=== PATIENT | female | born 1995 | race Caucasian/White ===

== ENCOUNTER 2019-04-20 14:38 | Emergency (ER) | payer OTHER, SELFPAY ==
[2019-04-20 14:53] VITALS: BP 133/79; PULSE 113; RESP 14; O2SAT 99; BMI 21.0
--- NOTE | 2019-04-20 15:49 | DI.US.S_ITS ---
PROCEDURE: US PELVIC COMPLETE INDICATIONS: PELVIC PAIN, CRAMPING, DYSMENORRHEA TECHNIQUE: Real-time scanning was performed of the pelvic organs, with image documentation. Additional endovaginal scanning was necessary due to incomplete visualization of the adnexal and endometrial structures by transabdominal scanning. COMPARISON: None. FINDINGS: Transabdominal scanning: Limited scanning through the kidneys shows no hydronephrosis. No pathologic free abdominal or pelvic fluid. Endovaginal scanning: Uterus: Uterus is normal in size at 7.1 x 7.8 x 4.6 cm. suspect septated uterus. The endometrium measures 8.4 mm in combined thickness. Ovaries: Ovaries are normal in size and echotexture. Right ovary measures 3.5 x 2.5 2.3 cm. Right ovary measures 2.2 x 1.8 x 1.4 cm. IMPRESSION: 1. Suspect septated uterus. Uterus is otherwise normal. 2. Normal ovaries. Dictated by: Luis M Perez M.D. on 04/20/2019 at 17:00 Approved by: Luis M Perez M.D. on 04/20/2019 at 17:03
--- NOTE | 2019-04-20 15:55 | ED.FEMALEGU ---
HPI - Female Genitourinary <FREDDY Sanches - Last Filed: 04/20/19 19:24> General Chief complaint: Urogenital-Female Stated complaint: Severe abd/back pain Time Seen by Provider: 04/20/19 14:59 Source: patient Mode of arrival: ambulatory Limitations: no limitations History of Present Illness HPI Narrative: 23-year-old female who was seen at [facility] for migraines yesterday, presents emergency department today complaining of menorrhagia, dysmenorrhea, dyspareunia, in left-sided back pain. She states she gets significant cramping and pain every time she menstruates but she noted it is more severe. She reports cramping is intermittent 8/10 and without aggravating or alleviating factors. She states she saturates 1 pad or tampon every 1-2 hours. She denies any risk for STIs, she states she is . She does not take control, but does not believe she is . She denies any dizziness, chest pain, fevers, shortness of breath, chest pain, vaginal discharge, dysuria, or other concerns. She states she is worried she may have an ovarian cyst. Related Data Allergies Allergy/AdvReac Type Severity Reaction Status Date / Time No Known Drug Allergies Allergy Verified 04/20/19 14:53 Review of Systems <FREDDY Sanches - Last Filed: 04/20/19 19:24> Review of Systems Narrative: REVIEW OF SYSTEMS: GENERAL: Denies fever, chills, malaise, or wt. loss. HENT: No head trauma, sore throat, or dysphagia. EYES: No loss of vision, double vision, eye pain, or irritation. CARDIOVASCULAR: No chest pain, palpitations, or orthopnea. RESPIRATORY: No shortness of breath or cough. GASTROINTESTINAL: Complains of lower abdominal cramping, see HPI GENITOURINARY: Patient complains of menorrhalgia dysmenorrhea, see HPI. No flank pain, urinary incontinence, hesitancy, frequency, or dysuria. Denies concerns for STIs MUSCULOSKELETAL: No pain, weakness, or trauma. INTEGUMENTARY: No rash, lesions, or pruritus. NEURO: No numbness, tingling, memory loss, confusion, or headaches. PSYCH: No behavior or mood changes. PFSH <FREDDY Sanches - Last Filed: 04/20/19 19:24> Medical History No significant medical problems (Acute) Social History (Updated 04/20/19 @ 19:11 by FREDDY Sanches) marital status: Social History marital status: Exam <FREDDY Sanches - Last Filed: 04/20/19 19:24> Initial Vital Signs Initial Vital Signs: Vital Signs Pulse Rate 113 H 04/20/19 14:53 Respiratory Rate 14 04/20/19 14:53 Blood Pressure 133/79 04/20/19 14:53 Pulse Oximetry 99 04/20/19 14:53 PHYSICAL EXAMINATION: GENERAL: Well groomed, alert, and cooperative. Answers questions promptly and appropriately. Vital signs noted. HENT: Normocephalic, atraumatic. Hearing intact. Oral mucosa is pink and moist. EYES: Conjunctiva pink, sclera white, no periorbital swelling. CARDIOVASCULAR: S1 and S2 sounds normal. Regular rate and rhythm, no murmurs, clicks, or bruits. No pedal edema. RESPIRATORY: Normal respiratory rate, trachea midline, airway patent. No stridor, nasal flaring or accessory muscle use. Lungs are clear in all ruiz without wheeze, rhonchi, or crackles. GASTROINTESTINAL: Bowel sounds normoactive. Abdomen is soft, patient notes right upper quadrant tenderness as well as lower bilateral pelvic tenderness. No rebound tenderness. No organomegaly, no palpable masses. GENITALURINARY: No flank tenderness. MUSCULOSKELETAL: Normal gait and coordination. Equal tone and mass bilaterally. EXTREMITIES: CMS intact, no pedal edema. SKIN: Warm, dry, soft, appropriate color for ethnicity. No lesions, rashes, or wounds. NEURO: Alert and Oriented X 3. Good coordination. No ataxia, or sensory deficits, or cognitive issues. PSYCH: Appropriate affect and mood. <Mary Gomez MD - Last Filed: 04/20/19 19:34> Initial Vital Signs Initial Vital Signs: Vital Signs Pulse Rate 113 H 04/20/19 14:53 Respiratory Rate 14 04/20/19 14:53 Blood Pressure 133/79 04/20/19 14:53 Pulse Oximetry 99 09/12/19 14:53 Course <FREDDY Sanches - Last Filed: 04/20/19 19:24> Course Course Narrative: Patient states she was feeling better after administration of Toradol. Patient encouraged to follow up with her primary care provider for further evaluation for conditions. Records were obtained from [facility] [place] emergency department from patient's visit on 04/19/2019 Results were as follows: WBC: 5.2 RBC: 4.11 Hb.0 HCT: 38.3 AST: 275 ALT: 67 Alk Phs: 62 Total Bili: 0.5 HCG Urine: Neg Orders Ordered: ED Orders 04/20/19 15:49 US pelvic complete Stat 04/20/19 16:15 Complete Blood Count AUTO DIFF Stat Comprehensive Metabolic Panel Stat Lipase Stat 04/20/19 16:20 Urine Microscopic Stat 04/20/19 16:38 US abdomen limited Stat Discontinued Medications Ketorolac Tromethamine (Toradol) 30 mg IM NOW ONE Stop: 04/20/19 15:51 Last Admin: 04/20/19 16:19 Dose: 30 mg Documented by: LAUREL Consultations Consultation #1: Patient staffed with Dr. Gomez. Vital Signs Vital signs: Vital Signs - 8 hr 04/20/19 14:53 04/20/19 18:26 Pulse Rate 113 H 85 Respiratory Rate 14 16 Blood Pressure 133/79 Blood Pressure [Left Arm] 112/73 Pulse Oximetry 99 100 <Mary Gomez MD - Last Filed: 04/20/19 19:34> Orders Ordered: ED Orders 04/20/19 15:49 US pelvic complete Stat 04/20/19 16:15 Complete Blood Count AUTO DIFF Stat Comprehensive Metabolic Panel Stat Lipase Stat 04/20/19 16:20 Urine Microscopic Stat 04/20/19 16:38 US abdomen limited Stat Discontinued Medications Ketorolac Tromethamine (Toradol) 30 mg IM NOW ONE Stop: 04/20/19 15:51 Last Admin: 04/20/19 16:19 Dose: 30 mg Documented by: LAUREL Vital Signs Vital signs: Vital Signs - 8 hr 04/20/19 14:53 04/20/19 18:26 Pulse Rate 113 H 85 Respiratory Rate 14 16 Blood Pressure 133/79 Blood Pressure [Left Arm] 112/73 Pulse Oximetry 99 100 MDM - Female Genitourinary <FREDDY Sanches - Last Filed: 04/20/19 19:24> Medical Records Attestation: I reviewed the patient's medical records. Lab Data Attestation: I reviewed the patient's lab results. Result diagrams: 04/20/19 16:15 04/20/19 16:15 Labs: Lab Results 04/20/19 04/20/19 04/20/19 Range/Units 16:15 16:15 16:20 WBC 11.4 H (4.5-11.0) X10^3/uL RBC 4.15 (4.0-5.2) X10^6/uL Hgb 12.8 (12.0-16.0) g/dL Hct 38.0 (36-46) % MCV 91.7 (80-100) fL MCH 30.8 (26-34) PG MCHC 33.6 (30-36) % RDW 12.9 (11.6-14.8) % Plt Count 237 (150-400) X10^3/uL Neut % (Auto) 73.2 (50-75) % Lymph % (Auto) 19.8 L (25-40) % Sharkey % (Auto) 6.3 (3-14) % Eos % (Auto) 0.2 L (2-4) % Baso % (Auto) 0.5 (0-2) % Neut # (Auto) 8400 H (6910-6076) /uL Lymph # (Auto) 2300 (7994-9675) /uL Sharkey # (Auto) 700 (0-900) /uL Eos # (Auto) 0 (0-450) /uL Baso # (Auto) 100 (0-100) /uL Sodium 142 (137-145) mmol/L Potassium 3.1 L (3.4-5.1) mmol/L Chloride 107 (98-107) mmol/L Carbon Dioxide 25 (22-32) mmol/L BUN 6 L (7-17) mg/dL Creatinine 0.60 (0.52-1.04) mg/dL Estimated GFR > 60.0 (>60) mL/min BUN/Creatinine Ratio 10.0 (6-22) Glucose 94 (70-100) mg/dL Calcium 9.4 (8.4-10.2) mg/dL Total Bilirubin 0.4 (0.2-1.3) mg/dL AST 230 H (14-36) IU/L ALT 76 H (9-52) IU/L Alkaline Phosphatase 70 (38-126) U/L Total Protein 7.4 (6.3-8.2) g/dL Albumin 4.2 (3.5-5.0) g/dL Globulin 3.2 (1.7-4.1) g/dL Albumin/Globulin Ratio 1.3 (1.0-2.8) Lipase 79 (23-300) U/L Urine RBC 0-1/hpf (0-5/HPF) Urine WBC 1-5/hpf (0-5/HPF) Ur Squamous Epith Cells 5-10 /hpf H (0-5/HPF) Urine Bacteria Occasional (0-1) (None) Hyaline Casts 1-5/lpf (None) Urine Mucus 2+ H (Negative) Ur Culture Indicated? Cult not indicated Point of Care Testing Test Results Negative Urine Dip Bedside Urine Glucose Negative Bedside Urine Bilirubin + 1 Bedside Urine Ketone +/- 5 Urine Specific [place] 1.020 Bedside Urine Occult Blood + Bedside Urine pH 6 Bedside Urine Protein + 30 Bedside Urine Urobilinogen +/- 1mg Bedside Urine Nitrite - Negative Bedside Urine Leukocytes - Negative Esterase Imaging Data US - abdomen: Radiologist's impression: [place] [address] Ultrasound Report Signed Patient: Sarah Mahmood#: [id number] : 1995Acct:[id number] Age/Sex: 23 / FDate of Service: 04/20/19 Loc: ED Accession Number: [id number] Procedure: US abdomen limited Ordering Provider: Tanya Braun PROCEDURE: US ABDOMEN LIMITED INDICATIONS: RUQ PAIN, ELEVATED AST TECHNIQUE: Real-time focused scanning was performed of the abdomen, with image documentation. COMPARISON: None. FINDINGS: The liver demonstrates normal size and demonstrates increased echotexture. Gallbladder is normal. No gallstones. No gallbladder wall thickening, pericholecystic fluid or sonographic Solano's sign. Common bile duct is only cover measuring 5.1 mm. Pancreas is normal. Visualized right kidney is normal without renal stone hydronephrosis. IMPRESSION: 1. Normal gallbladder. No gallstones or acute cholecystitis. 2. Diffusely increased hepatic echotexture. This finding is most likely secondary to hepatic fatty infiltration although other hepatocellular disease may have a similar appearance. Recommend clinical correlation. Dictated by: Luis M Perez M.D. on 04/20/2019 at 16:57 Approved by: Luis M Perez M.D. on 04/20/2019 at 17:00 Pelvic US: Radiologist's impression: [address] [address] Ultrasound Report Signed Patient: Sarah Mahmood#: [id number] : 1995Acct:[id number] Age/Sex: te of Service: 04/20/19 Loc: ED Accession Number: [id number] Procedure: US pelvic complete Ordering Provider: Tanya Braun PROCEDURE: US PELVIC COMPLETE INDICATIONS: PELVIC PAIN, CRAMPING, DYSMENORRHEA TECHNIQUE: Real-time scanning was performed of the pelvic organs, with image documentation. Additional endovaginal scanning was necessary due to incomplete visualization of the adnexal and endometrial structures by transabdominal scanning. COMPARISON: None. FINDINGS: Transabdominal scanning: Limited scanning through the kidneys shows no hydronephrosis. No pathologic free abdominal or pelvic fluid. Endovaginal scanning: Uterus: Uterus is normal in size at 7.1 x 7.8 x 4.6 cm. suspect septated uterus. The endometrium measures 8.4 mm in combined thickness. Ovaries: Ovaries are normal in size and echotexture. Right ovary measures 3.5 x 2.5 2.3 cm. Right ovary measures 2.2 x 1.8 x 1.4 cm. IMPRESSION: 1. Suspect septated uterus. Uterus is otherwise normal. 2. Normal ovaries. Dictated by: Luis M Perez M.D. on 04/20/2019 at 17:00 Approved by: Luis M Perez M.D. on 04/20/2019 at 17:03 [facility] Narrative Medical decision making narrative: Differential for dysmenorrhea include endometriosis (possible, cannot be ruled out with ultrasound), septate uterus, or hormonal fluctuations. Less likely or ovarian cysts as test were negative for these. Differential for elevated liver enzymes include mono (less likely as she denies any illnesses within the past 3 months), alcohol consumption (less likely a she denies that she drinks daily or frequently), genetics, and lifestyle choices. Patient understood that more follow-up was needed to diagnose other possible causes. She is hemodynamically stable (as seen by her unchanged hematocrit and hemoglobin) and able to return home. I am unsure the exact cause of her elevated white blood cell count from yesterday however, she does not appear to be acutely ill due to lack of other concerning laboratory findings, lack of fever, lack of findings on imaging, lack of right lower quadrant abdominal pain. Strict return precautions were given to patient. <Mary Gomez MD - Last Filed: 04/20/19 19:34> Lab Data Labs: Lab Results 04/20/19 04/20/19 04/20/19 Range/Units 16:15 16:15 16:20 WBC 11.4 H (4.5-11.0) X10^3/uL RBC 4.15 (4.0-5.2) X10^6/uL Hgb 12.8 (12.0-16.0) g/dL Hct 38.0 (36-46) % MCV 91.7 (80-100) fL MCH 30.8 (26-34) PG MCHC 33.6 (30-36) % RDW 12.9 (11.6-14.8) % Plt Count 237 (150-400) X10^3/uL Neut % (Auto) 73.2 (50-75) % Lymph % (Auto) 19.8 L (25-40) % Sharkey % (Auto) 6.3 (3-14) % Eos % (Auto) 0.2 L (2-4) % Baso % (Auto) 0.5 (0-2) % Neut # (Auto) 8400 H (0700-6619) /uL Lymph # (Auto) 2300 (9650-6491) /uL Sharkey # (Auto) 700 (0-900) /uL Eos # (Auto) 0 (0-450) /uL Baso # (Auto) 100 (0-100) /uL Sodium 142 (137-145) mmol/L Potassium 3.1 L (3.4-5.1) mmol/L Chloride 107 (98-107) mmol/L Carbon Dioxide 25 (22-32) mmol/L BUN 6 L (7-17) mg/dL Creatinine 0.60 (0.52-1.04) mg/dL Estimated GFR > 60.0 (>60) mL/min BUN/Creatinine Ratio 10.0 (6-22) Glucose 94 (70-100) mg/dL Calcium 9.4 (8.4-10.2) mg/dL Total Bilirubin 0.4 (0.2-1.3) mg/dL AST 230 H (14-36) IU/L ALT 76 H (9-52) IU/L Alkaline Phosphatase 70 (38-126) U/L Total Protein 7.4 (6.3-8.2) g/dL Albumin 4.2 (3.5-5.0) g/dL Globulin 3.2 (1.7-4.1) g/dL Albumin/Globulin Ratio 1.3 (1.0-2.8) Lipase 79 (23-300) U/L Urine RBC 0-1/hpf (0-5/HPF) Urine WBC 1-5/hpf (0-5/HPF) Ur Squamous Epith Cells 5-10 /hpf H (0-5/HPF) Urine Bacteria Occasional (0-1) (None) Hyaline Casts 1-5/lpf (None) Urine Mucus 2+ H (Negative) Ur Culture Indicated? Cult not indicated Point of Care Testing Test Results Negative Urine Dip Bedside Urine Glucose Negative Bedside Urine Bilirubin + 1 Bedside Urine Ketone +/- 5 Urine Specific [place] 1.020 Bedside Urine Occult Blood + Bedside Urine pH 6 Bedside Urine Protein + 30 Bedside Urine Urobilinogen +/- 1mg Bedside Urine Nitrite - Negative Bedside Urine Leukocytes - Negative Esterase Discharge Plan Departure Patient Disposition: Home Clinical Impression: Elevated liver enzymes, Septate uterus, Dysmenorrhea Discharge Date/Time: 04/20/19 18:35 Instructions: DI for Dysmenorrhea, DI for Nonalcoholic Fatty Liver Disease Activity Restrictions/Additional Instructions: Thank you for entrusting me with your care today. As discussed, your liver enzymes are elevated here in your ultrasound shows a possible fatty liver, please follow up with her primary care provider regarding these findings. Additionally, we found that you have a septate uterus which may or may not be contributing to your pain during menstruation. You may take ibuprofen 600 mg every 6 hours for pain, I suggest you take this around the clock for the next 3 days. Return emergency department if you develop chest pain, shortness of breath, high fevers, izziness, syncope, or other concerning symptoms.
[2019-04-20] MEDS: KETOROLAC 60 MG/2 ML VIAL 30 MG IM (16:19)
[2019-04-20 16:23] LABS: Add Manual Diff / Slide Review NO; Basophils Absolute Auto 100 /uL (0-100); Basophils Percent Auto 0.5 % (0-2); Eosinophils Absolute Auto 0 /uL (0-450); Eosinophils Percent Auto 0.2 % (2-4); Hemoglobin 12.8 g/dL (12.0-16.0); Lymphocytes Absolute Auto 2300 /uL (1100-4500); Lymphocytes Percent Auto 19.8 % (25-40); Mean Corpuscular HGB Conc 33.6 % (30-36); Mean Corpuscular Hemoglobin 30.8 PG (26-34); Mean Corpuscular Volume 91.7 fL (80-100); Monocytes Absolute Auto 700 /uL (0-900); Monocytes Percent Auto 6.3 % (3-14); Neutrophils Absolute Auto 8400 /uL (1500-7000); Neutrophils Percent Auto 73.2 % (50-75); Platelet Count 237 X10^3/uL (150-400); Red Blood Cell Count 4.15 X10^6/uL (4.0-5.2); Red Cell Distribution Width 12.9 % (11.6-14.8); White Blood Cell Count 11.4 X10^3/uL (4.5-11.0)
[2019-04-20 16:33] LABS: Alanine Aminotransferase 76 IU/L (9-52); Albumin 4.2 g/dL (3.5-5.0); Albumin Globulin Ratio 1.3 (1.0-2.8); Alkaline Phosphatase 70 U/L (38-126); Aspartate Aminotransferase 230 IU/L (14-36); Bilirubin Total 0.4 mg/dL (0.2-1.3); Blood Urea Nitrogen 6 mg/dL (7-17); Calcium 9.4 mg/dL (8.4-10.2); Carbon Dioxide 25 mmol/L (22-32); Chloride 107 mmol/L (98-107); Estimated Glomerular Filt Rate > 60.0 mL/min (>60); Globulin 3.2 g/dL (1.7-4.1); Glucose 94 mg/dL (70-100); HEMOLYSIS < 15 (0-50); Lipase 79 U/L (23-300); Potassium 3.1 mmol/L (3.4-5.1); Sodium 142 mmol/L (137-145); Total Protein 7.4 g/dL (6.3-8.2)
--- NOTE | 2019-04-20 16:38 | DI.US.S_ITS ---
PROCEDURE: US ABDOMEN LIMITED INDICATIONS: RUQ PAIN, ELEVATED AST TECHNIQUE: Real-time focused scanning was performed of the abdomen, with image documentation. COMPARISON: None. FINDINGS: The liver demonstrates normal size and demonstrates increased echotexture. Gallbladder is normal. No gallstones. No gallbladder wall thickening, pericholecystic fluid or sonographic Solano's sign. Common bile duct is only cover measuring 5.1 mm. Pancreas is normal. Visualized right kidney is normal without renal stone hydronephrosis. IMPRESSION: 1. Normal gallbladder. No gallstones or acute cholecystitis. 2. Diffusely increased hepatic echotexture. This finding is most likely secondary to hepatic fatty infiltration although other hepatocellular disease may have a similar appearance. Recommend clinical correlation. Dictated by: Luis M Perez M.D. on 04/20/2019 at 16:57 Approved by: Luis M Perez M.D. on 04/20/2019 at 17:00
[2019-04-20 16:41] LABS: Bacteria Urine Occasional (0-1); Culture Indicated Urine Cult Not Indicated; Hyaline Casts Urine 1-5/LPF; Mucus Urine 2+ (Negative); RBC Urine 0-1/HPF (0-5/HPF); Squamous Epithelial Cell Urine 5-10 /HPF (0-5/HPF); WBC Urine 1-5/HPF (0-5/HPF)
--- NOTE | 2019-04-20 16:59 | PC.NURSE ---
Pt states pain in lower abdomen. worse with menses, states is painful with sex. States changing pad/tampon every 1-2 hrs.
[2019-04-20 18:26] VITALS: BP 112/73; PULSE 85; RESP 16; O2SAT 100
== END 2019-04-20 18:35 | disposition home or self-care (01) ==
PROVIDERS: Emergency Provider Nurse Practitioner
DX: N94.6 Dysmenorrhea, unspecified (principal); R74.8 Abnormal levels of other serum enzymes; Q51.20 Other doubling of uterus, unspecified
CPT/HCPCS: 36415; 76705; 76830; 76856; 80053; 81003; 81015; 81025; 83690; 85025; 96372; 99282; 99284; J1885

== ENCOUNTER → 2020-02-28 14:59 | Outpatient (CLI) | payer OTHER, SELFPAY ==
[2020-02-29 20:49] LABS: COVID19 Sendout Not Detected (Not Detect)
== END ==
PROVIDERS: Visit Provider Physician Assistant
DX: Z11.59 Encounter for screening for other viral diseases (principal)
CPT/HCPCS: 87635

== ENCOUNTER → 2020-04-01 14:49 | Outpatient (CLI) | payer OTHER, SELFPAY ==
[2020-04-02 20:03] LABS: COVID19 Sendout Not Detected (Not Detect)
== END ==
PROVIDERS: Visit Provider Physician Assistant
DX: Z11.59 Encounter for screening for other viral diseases (principal)
CPT/HCPCS: 87635

== ENCOUNTER 2020-04-04 09:22 | Day surgery (SDC) | payer OTHER, SELFPAY ==
[2020-04-04] VITALS (12 sets, daily range): BP systolic 90–122; BP diastolic 46–86; PULSE 66–96; RESP 12–17; TEMP 36.1–36.8; O2SAT 99–100; BMI 21.0
--- NOTE | 2020-04-04 11:37 | PM.PREOP ---
Pre-operative Note COVID-19 COVID-19 status: Negative Interval Note History & Physical reviewed/Exam performed by Physician: Yes Changes to H&P: No
--- NOTE | 2020-04-04 11:38 | P.HP_ITS ---
History of Present Illness History of Present Illness Date Patient Seen: 04/04/20 Time Patient Seen: 11:38 Chief complaint: Chronic tonsillitis with stones Narrative: 24-year-old female with chronic tonsil stones, throat pain, halitosis, presents for tonsillectomy and possible adenoidectomy, no recent URI symptoms. Patient History Medical History Excessive daytime sleepiness (Chronic ~2017) GERD (gastroesophageal reflux disease) (Chronic ~2018) Insomnia (Chronic ~2018) Migraines (Acute) Family & Social History Family History Family/Other Loud snoring Hypertension Father Substance abuse Mother Substance abuse Social History: household members spouse Tobacco & Substance use: Smoking Status Never smoker alcohol intake current alcohol intake frequency a few times a week Substance Use Type does not use Meds Home Medications and Allergies Home Medications Medication Instructions Recorded Confirmed Type gabapentin 400 mg capsule 400 mg PO BEDTIME 02/13/20 04/04/20 History omeprazole 20 mg tablet,delayed 20 mg PO DAILY 02/13/20 04/04/20 History release Allergies Allergy/AdvReac Type Severity Reaction Status Date / Time [id number] Antimigraine AdvReac Intermediate tachycardia Verified 04/04/20 09:43 Agents Review of Systems Review of Systems ROS: Yes All systems reviewed with the patient and are negative except as otherwise documented Exam Vital Signs (past 8 hours): - 04/04/20 09:45 Temperature 97.8 F Pulse Rate 76 Respiratory Rate 16 Blood Pressure 119/86 Pulse Oximetry 99 Oxygen Delivery Method Room Air Narrative Exam Narrative: Well-developed well-nourished female, alert and oriented. Heart regular rate and rhythm without murmur, lungs clear to auscultation bilaterally Assessment & Plan Assessment & Plan narrative: 1. Chronic tonsillitis 2. Tonsil stones 3. Sore t hroat 4. Halitosis 5. Upper airway obstruction secondary to tonsillar hypertrophy. Following discussion of the material risks benefits complications and alternatives, the patient elected to proceed with tonsillectomy and possible adenoidectomy as an outpatient.
[2020-04-04] MEDS: ACETAMINOPHEN 325 MG TABLET 975 MG PO (11:39)
[2020-04-04] MEDS: LACTATED RINGERS 1,000 ML 42 ML IV (11:40)
--- NOTE | 2020-04-04 11:42 | P.OP_ITS ---
Operative Date/Time/Diagnoses Date of procedure: 04/04/20 Time of procedure: 12:30 Pre-op diagnosis: 1. Chronic tonsillitis with tonsil stones 2. Halitosis 3. Throat pain 4. Upper airway obstruction secondary to tonsillar hypertrophy. Post-op diagnosis: same Procedure & Clinicians Procedure: Tonsillectomy Same procedure as scheduled: Yes Indications: 24-year-old female with the above diagnoses incompletely managed with medical therapy presents for the above procedure. Following discussion of the material risks benefits complications and alternatives, she elected to proceed Surgeon: Gustabo Waldron Click Yes if Unassisted: Yes Anesthesia Type: General and Local Operative Notes Findings: Intact palate, single uvula, 3+ tonsils with multiple stones, moderately inflamed and friable, no significant adenoid tissue Closure Type: not applicable Specimen(s): none sent Estimated Blood Loss (mL): 30 Blood products transfused: none Procedure in detail: Following identification and confirmation of consent the patient was brought to the operating room suite and placed in the supine position. General endotracheal anesthesia was administered. A head wrap, shoulder roll, and mouth gag were placed and a red rubber catheter was inserted through the nostril and out the mouth to retract the soft palate. There was no significant adenoid tissue. The left tonsil was retracted medially and suction electrocautery on a setting of 30 was used to dissect the tonsil in a subcapsular plane, followed by hemostasis with the same. This process was repeated on the right side with identical findings. The tonsillar fossae were superficially infiltrated bilate rally with a 1:1 mixture of 1% lidocaine 1 100,000 epinephrine and 0.25% Marcaine 1 to [id number] epinephrine. Mouth gag and rubber catheter were removed and the patient was extubated in the operating room and taken to the recovery room in stable condition without known complication. Complications: none Post-operative Condition: stable Disposition: same day surgery Plan for aftercare: [place] home
--- NOTE | 2020-04-04 12:09 | SUR.OPER ---
Supine on padded OR bed, head on pillow, arms secured on padded arm boards at <90 degrees abduction, legs uncrossed, safety belt at thigh, tape over blanket over lower legs.
[2020-04-04] MEDS: LIDOCAINE 1% W/EPI 20 ML INJ (12:15)
[2020-04-04] MEDS: BUPIVACAINE 0.25% W/ EPI 30 ML VIAL 20 ML INJ (12:15)
--- NOTE | 2020-04-04 12:59 | SUR.PHASEI ---
1253 aroused spontaneously, airway dc'd. Denies pain/nausea; declined ice chips. returned to sleep
[2020-04-04] MEDS: fentaNYL 100 MCG/2 ML INJ IV ×3 (13:06→13:31)
--- NOTE | 2020-04-04 13:10 | SUR.PHASEI ---
To PACU with oral airway/manual support Airway dc'd, Pt currently medicated for pain, sitting up, eating a popsicle. Oriented and appropriate. Resp unlabored. no bleeding noted
[2020-04-04] MEDS: OXYCODONE IR 5 MG TABLET PO ×2 (13:16→13:52)
--- NOTE | 2020-04-04 13:45 | SUR.PHASEI ---
states that pain has slightly improved. Resting w/o grimace or non-verbal indicators of pain, ice-pack to throat. VSS
== END 2020-04-04 14:40 | disposition home or self-care (01) ==
PROVIDERS: Referring Provider Otolaryngology; Visit Provider Otolaryngology
PROC: (CPT 42826; principal; 2020-04-04 11:00)
DX: J35.01 Chronic tonsillitis (principal); J35.8 Other chronic diseases of tonsils and adenoids; R19.6 Halitosis
CPT/HCPCS: 42826; J0330; J1100; J2250; J2405; J2704; J3010

== ENCOUNTER 2020-04-09 17:34 | Emergency (ER) | payer OTHER, SELFPAY ==
[2020-04-09 17:40] VITALS: PULSE 81; O2SAT 99
[2020-04-09 17:48] VITALS: BP 131/84; PULSE 83; RESP 16; TEMP 36.9; O2SAT 99; BMI 21.0
[2020-04-09 18:00] VITALS: BP 107/72; PULSE 90; O2SAT 98
[2020-04-09] MEDS: SODIUM CHLORIDE 0.9% 1,000 ML 1000 ML IV (18:17)
[2020-04-09 18:30] VITALS: BP 113/76; PULSE 74; O2SAT 99
--- NOTE | 2020-04-09 18:38 | ED.RECABL ---
HPI - Recheck/Abnormal Lab/Rx General Chief Complaint: Recheck/Abnormal Lab/Rx Stated Complaint: HEADACHE, DIZZY S/P SURGERY Time Seen by Provider: 04/09/20 18:00 Source: patient Mode of arrival: Ambulatory Limitations: no limitations History of Present Illness HPI narrative: 24-year-old female who 5 days ago underwent a bilateral tonsillectomy. Patient states that since that time she has had increasing pain and nausea and vomiting and headache and dizzy. States she is unable to keep anything down secondary to nausea and also the pain with swallowing. No fevers. Also describes bilateral ear pain. Is taking her Tylenol/ibuprofen/codeine that was given to her by her operative provider as directed. No problems breathing. Came into the emergency department for evaluation because of the above symptoms Related Data Home Medications Medication Instructions Recorded Confirmed gabapentin 400 mg capsule 400 mg PO BEDTIME 02/13/20 04/04/20 omeprazole 20 mg tablet,delayed 20 mg PO DAILY 02/13/20 04/04/20 release Previous Rx's Medication Instructions Recorded ondansetron 4 mg PO Q6H PRN #10 tab 04/09/20 Allergies Allergy/AdvReac Type Severity Reaction Status Date / Time [id number] Antimigraine AdvReac Intermediate tachycardia Verified 04/09/20 17:51 Agents Review of Systems Constitutional Constitutional: Denies fatigue, Denies fever(s) and Reports headache(s) ENT Ears, Nose, Mouth, and Throat: Reports dysphagia, Denies vertigo, Reports dizziness, Reports otalgia, Reports headache(s), Denies lip swelling, Reports mouth pain, Denies sinus pain and Reports sore throat Cardiovascular Cardiovascular: Denies chest pain and Denies dyspnea Respiratory Respiratory: Denies dyspnea Gastrointestinal Gastrointestinal: Denies abdominal pain, Denies change in bowel habits, Reports dysphagia, Reports nausea and Reports vomiting Integumentary/Breasts Skin/Breast: Denies lesions and Denies rash Neurologic Neurologic: Denies behavioral changes, Denies vertigo, Reports dizziness and Reports headache(s) Psychiatric Psychiatric: Denies behavioral changes Endocrine Endocrine: Denies fatigue Hematologic/Lymphatic Hematologic/Lymphatic: Denies easy bleeding and Denies easy bruising Allergic/Immunologic Allergic/Immunologic: Denies urticaria and Denies lip swelling Patient History Medical History Excessive daytime sleepiness (Chronic ~2018) GERD (gastroesophageal reflux disease) (Chronic ~2018) Insomnia (Chronic ~2018) Migraines (Acute) Family History Family/Other Loud snoring Hypertension Father Substance abuse Mother Substance abuse Social History marital status: household members: spouse Smoking Status: Never smoker alcohol intake: current Smoking Status: Never smoker alcohol intake frequency: a few times a week Substance Use Type: does not use Exam Initial Vital Signs Initial Vital Signs: Vital Signs Pulse Rate 81 04/09/20 17:40 Pulse Oximetry 99 04/09/20 17:40 Const General: cooperative and comfortable Limitations: mental status not altered HENMT Head: normal to inspection and normocephalic Ears: TM's normal bilaterally Nose: external nose normal Face and sinus: normal facial exam Mouth: oral mucosae normal and lip normal Teeth and gingiva: dentition normal Throat: other (Tonsillar fossas with white eschar in place without bleeding) Resp Effort & Inspection: normal respiratory effort Auscultation: clear to auscultation bilaterally Cardio Rate: regular rate Rhythm: regular rhythm GI Inspection: normal to inspection and non-distended Skin Lesions: no lesions Rashes: no rashes Neuro General: patient alert and patient awake Cognition: normal cognition Speech: speech normal Extrem General: normal to inspection and capillary refill normal Psych Appearance: grossly normal and well kempt Course Orders Ordered: Discontinued Medications Dexamethasone (Decadron) 16 mg IV NOW ONE Stop: 04/09/20 18:42 Last Admin: 04/09/20 19:10 Dose: 16 mg Documented by: TRAE Sodium Chloride (Normal Saline 0.9%) 1,000 mls @ 1,000 mls/hr IV BOLUS ONE Stop: 04/09/20 19:01 Last Infusion: 04/09/20 19:25 Dose: 0 mls/hr Documented by: Admin: 04/09/20 18:17 Dose: 1,000 mls/hr Documented by: TRAE Ondansetron HCl (Zofran) 4 mg IV NOW ONE Stop: 04/09/20 19:13 Last Admin: 04/09/20 19:21 Dose: 4 mg Documented by: DERRICK Vital Signs Vital signs: Vital Signs - 8 hr 04/09/20 17:40 04/09/20 17:48 04/09/20 18:00 Temperature 98.5 F Pulse Rate 81 83 90 Respiratory Rate 16 Blood Pressure 131/84 107/72 Pulse Oximetry 99 99 98 04/09/20 18:30 04/09/20 19:00 Temperature Pulse Rate 74 68 Respiratory Rate Blood Pressure 113/76 111/70 Pulse Oximetry 99 100 MDM - Recheck/Abnormal Lab/Rx MDM Narrative Medical decision making narrative: Patient's surgical sites appear appropriate at this stage after her surgery. No problems breathing or tolerating her secretions. There is no bleeding. I discussed the case with Dr. Mascorro who is call person for ENT who agreed with the IV fluids and also Decadron. Reassured patient that the symptoms she is having is appropriate for this stage of her procedure. We discussed increasing fluids and potentially introducing liquids and her diet that could replace calories. Encouraged her to continue to take her medications as directed. She was given return precautions. She expressed understanding and agreement Discharge Plan Departure Patient Disposition: Home Clinical Impression: Post-operative pain Discharge Date/Time: 04/09/20 19:51 Activity Restrictions/Additional Instructions: Continue all of your medications as directed. Keep all of your scheduled medical appointments. Be sure to increase your fluid intake as much as possible. Return to the emergency department for any new or worsening symptoms. The nausea medication was electronically transmitted to [facility] in [place] Prescriptions: New ondansetron 4 mg tablet,disintegrating 4 mg PO Q6H PRN (Reason: nausea and vomiting) Qty: 10 RF: 0 No Action gabapentin 400 mg capsule 400 mg PO BEDTIME RF: 0 omeprazole 20 mg tablet,delayed release (DR/EC) 20 mg PO DAILY RF: 0
[2020-04-09 19:00] VITALS: BP 111/70; PULSE 68; O2SAT 100
[2020-04-09] MEDS: DEXAMETHASONE 4 MG/ML VIAL 16 MG IV (19:10)
[2020-04-09] MEDS: ONDANSETRON 4 MG/2 ML INJ IV (19:21)
== END 2020-04-09 19:51 | disposition home or self-care (01) ==
PROVIDERS: Emergency Provider Emergency Medicine
DX: G89.18 Other acute postprocedural pain (principal)
CPT/HCPCS: 96361; 96374; 96375; 99283; 99284; J1100; J2405